=== PATIENT | female | born 1990 | race Hispanic/Latino ===

== ENCOUNTER 2018-09-16 17:43 | Emergency (ER) | payer BC, MEDICAID ==
[~2018-09-16 17:43] MED LIST: ACET1TAB12 PO; DOCU-116 PO; IBUP-2077 PO; PREN1TAB89 PO
[2018-09-16] MEDS ORDERED: LIDOCAINE HCL 2% VISCOUS 15 ML UDCUP ONE (18:09)
== END 2018-09-16 18:28 | disposition home or self-care (01) ==
LOC: EDH 17:43
DX: H66.002 Acute suppurative otitis media without spontaneous rupture of ear drum, left ear (principal)

== ENCOUNTER 2019-06-13 15:53 | Emergency (ER) | payer BC, MEDICAID ==
[2019-06-13 17:24] LABS: APPEARANCE,URINE Clear (CLEAR); BILIRUBIN,URINE Negative (NEGATIVE); COLOR,URINE Yellow (YELLOW); GLUCOSE, URINE (UA) Negative (NEGATIVE); KETONES,URINE Trace mg/dL (NEGATIVE); LEUKOCYTE ESTERASE ,URINE Large (NEGATIVE); NITRATE,URINE Positive (NEGATIVE); OCCULT BLOOD,URINE Negative (NEGATIVE); PH,URINE 6.5 (5.0-8.0); PROTEIN,URINE Negative (NEGATIVE)
[2019-06-13 18:17] LABS: BACTERIA,URINE Few /HPF (None Seen); RBC,URINE None Seen /HPF (0-1)
== END 2019-06-13 17:54 | disposition home or self-care (01) ==
LOC: EDH 15:53
DX: O20.0 Threatened abortion (principal); O23.42 Unspecified infection of urinary tract in pregnancy, second trimester; Z3A.14 14 weeks gestation of pregnancy
CPT/HCPCS: 81001; 87077; 87088; 87186

== ENCOUNTER 2019-11-17 11:04 | Observation (INO) | payer BC, MEDICAID ==
[2019-11-17 11:53] LABS: APPEARANCE,URINE Cloudy (CLEAR); BILIRUBIN,URINE Negative (NEGATIVE); COLOR,URINE Yellow (YELLOW); GLUCOSE, URINE (UA) 250 mg/dL (NEGATIVE); KETONES,URINE Negative (NEGATIVE); LEUKOCYTE ESTERASE ,URINE Small (NEGATIVE); NITRATE,URINE Negative (NEGATIVE); OCCULT BLOOD,URINE Negative (NEGATIVE); PROTEIN,URINE Trace mg/dL (NEGATIVE)
[2019-11-17 11:59] LABS: BACTERIA,URINE Few /HPF (None Seen); RBC,URINE 0-1 /HPF (0-1); SQUAMOUS EPITHELIAL CELL,UR Few /HPF (0-2)
[2019-11-17 12:45] LABS: AMPHET/METH SCREEN,URINE NEGATIVE (NEGATIVE); BARBITURATE SCREEN, URINE NEGATIVE (NEGATIVE); BENZODIAZEPINES SCREEN,URINE NEGATIVE (NEGATIVE); CANNABINOID SCREEN,URINE NEGATIVE (NEGATIVE); COCAINE SCREEN,URINE NEGATIVE (NEGATIVE); OPIATE SCREEN,URINE NEGATIVE (NEGATIVE); PHENCYCLIDINE SCREEN,URINE NEGATIVE (NEGATIVE)
== END 2019-11-17 14:40 | disposition home or self-care (01) ==
LOC: EDH 11:04 → LDH 11:05
PROVIDERS: ADMIT Specialist; ATTEND Specialist
DX: O99.89 Other specified diseases and conditions complicating pregnancy, childbirth and the puerperium (principal); M54.5 Low back pain; O26.893 Other specified pregnancy related conditions, third trimester; R10.13 Epigastric pain; O34.219 Maternal care for unspecified type scar from previous cesarean delivery; Z3A.38 38 weeks gestation of pregnancy
CPT/HCPCS: 80305; 81001; 87804 ×2; 99283; G0378 ×4

== ENCOUNTER 2022-09-27 00:56 | Observation (INO) | payer BC, MEDICAID ==
[~2022-09-27] VITALS: Ht 162.6 cm; Wt 86.6 kg
[~2022-09-27 00:56] MED LIST changes: +PREN-196 PO
[2022-09-27 00:57] VITALS: BP 106/62
[2022-09-27] MEDS ORDERED: LACTATED RINGERS 1000ML IV PRN (01:30)
[2022-09-27 01:32] LABS: APPEARANCE,URINE CLEAR (CLEAR); BILIRUBIN,URINE NEGATIVE (NEGATIVE); COLOR,URINE LIGHT-YELLOW (YELLOW); GLUCOSE, URINE (UA) 50 mg/dL (NEGATIVE); KETONES,URINE NEGATIVE (NEGATIVE); LEUKOCYTE ESTERASE ,URINE 250 Leu/uL (NEGATIVE); NITRATE,URINE 2+ (NEGATIVE); OCCULT BLOOD,URINE NEGATIVE (NEGATIVE); PH,URINE 6.5 (5.0-8.0); PROTEIN,URINE 10 mg/dL (NEGATIVE); UROBILINOGEN,URINE 0.2 mg/dL (0.2-1.0)
[2022-09-27 01:39] LABS: BACTERIA,URINE FEW /HPF (None Seen); MUCUS,URINE RARE LPF (None Seen); SQUAMOUS EPITHELIAL CELL,UR RARE /HPF (0-2)
[2022-09-27] MEDS ORDERED: TERBUTALINE SULFATE VIAL 1MG/ML SQ SCH (02:30)
[2022-09-27] MEDS ORDERED: CEFTRIAXONE 1G VIAL IVP ONE (02:30)
[2022-09-27] MEDS ORDERED: LACTATED RINGERS 1000ML 1,000 ML IV SCH (02:30)
[2022-09-27] MEDS ORDERED: TERBUTALINE SULFATE VIAL 1MG/ML SQ PRN (02:30)
[2022-09-27] MEDS ORDERED: ACETAMINOPHEN 500 MG TABLET PO ONE (03:00)
== END 2022-09-27 04:00 | disposition home or self-care (01) ==
LOC: EDH 00:56 → LDH 00:57
PROVIDERS: ADMIT Obstetrics & Gynecology; ATTEND Obstetrics & Gynecology
DX: O99.891 Other specified diseases and conditions complicating pregnancy (principal); R10.30 Lower abdominal pain, unspecified; M54.50 Low back pain, unspecified; Z3A.31 31 weeks gestation of pregnancy; Z98.891 History of uterine scar from previous surgery
CPT/HCPCS: 96374; 96361; 59025; 96372; 87077; 87088; 87186; 81001; G0378 ×3; G0379; J7120; J3105; J0696; 96360

== ENCOUNTER 2022-10-23 10:12 | Observation (INO) | payer MEDICAID ==
[~2022-10-23] VITALS: Ht 162.6 cm; Wt 88.9 kg
[2022-10-23 10:29] VITALS: BP 117/68
[2022-10-23] MEDS ORDERED: PROMETHAZINE HCL 25 MG/ML 1ML AMPULE IM SCH (11:00)
[2022-10-23 11:05] LABS: APPEARANCE,URINE CLEAR (CLEAR); BILIRUBIN,URINE NEGATIVE (NEGATIVE); COLOR,URINE LIGHT-YELLOW (YELLOW); GLUCOSE, URINE (UA) NEGATIVE (NEGATIVE); KETONES,URINE NEGATIVE (NEGATIVE); LEUKOCYTE ESTERASE ,URINE 500 Leu/uL (NEGATIVE); NITRATE,URINE 1+ (NEGATIVE); OCCULT BLOOD,URINE NEGATIVE (NEGATIVE); PH,URINE 6.5 (5.0-8.0); PROTEIN,URINE NEGATIVE (NEGATIVE); UROBILINOGEN,URINE 0.2 mg/dL (0.2-1.0)
[2022-10-23 11:21] LABS: BACTERIA,URINE MOD /HPF (None Seen); MUCUS,URINE RARE LPF (None Seen); SQUAMOUS EPITHELIAL CELL,UR RARE /HPF (0-2)
[2022-10-23] MEDS ORDERED: CEFTRIAXONE 1G VIAL IM SCH (11:36)
[2022-10-23] MEDS ORDERED: LIDOCAINE HCL MPF 1% 5ML VIAL ONE (12:06)
== END 2022-10-23 12:25 | disposition home or self-care (01) ==
LOC: EDH 10:12 → LDH 10:13
PROVIDERS: ADMIT Obstetrics & Gynecology; ATTEND Obstetrics & Gynecology
DX: O99.891 Other specified diseases and conditions complicating pregnancy (principal); M54.50 Low back pain, unspecified; Z3A.34 34 weeks gestation of pregnancy; Z79.899 Other long term (current) drug therapy
CPT/HCPCS: 59025; 87077; 87088; 87186; 81001; G0378 ×2; G0379; J0696; J3490; J2550

== ENCOUNTER 2022-10-29 13:59 | Observation (INO) | payer MEDICAID ==
[2022-10-29] MEDS ORDERED: LACTATED RINGERS 1000ML IV SCH (14:30)
[2022-10-29] MEDS ORDERED: MEPERIDINE-PF 50 MG/ML SYG IVP PRN (14:30)
[2022-10-29] MEDS ORDERED: PROMETHAZINE HCL 25 MG/ML 1ML AMPULE IM PRN (14:30)
[2022-10-29 14:58] LABS: APPEARANCE,URINE CLEAR (CLEAR); BILIRUBIN,URINE NEGATIVE (NEGATIVE); COLOR,URINE YELLOW (YELLOW); GLUCOSE, URINE (UA) NEGATIVE (NEGATIVE); KETONES,URINE NEGATIVE (NEGATIVE); LEUKOCYTE ESTERASE ,URINE 75 Leu/uL (NEGATIVE); NITRATE,URINE NEGATIVE (NEGATIVE); OCCULT BLOOD,URINE NEGATIVE (NEGATIVE); PH,URINE 6.5 (5.0-8.0); PROTEIN,URINE 30 mg/dL (NEGATIVE); UROBILINOGEN,URINE 0.2 mg/dL (0.2-1.0)
[2022-10-29 15:09] LABS: BACTERIA,URINE FEW /HPF (None Seen); MUCUS,URINE MOD LPF (None Seen); OTHER CASTS, URINE 1 /LPF (None Seen); SQUAMOUS EPITHELIAL CELL,UR FEW /HPF (0-2)
[2022-10-29 15:30] LABS: BASOPHILS % (AUTO) 0.2 % (0.0-5.0); EOSINOPHILS % (AUTO) 0.6 % (0.0-8.0); HEMATOCRIT 30.4 % (36-48); LYMPHOCYTES % (AUTO) 22.3 % (21.0-51.0); MEAN CORPUSCULAR HEMOGLOBIN 22.1 pg (27.0-33.0); MEAN CORPUSCULAR HGB CONC 30.6 g/dL (32.0-36.0); MEAN CORPUSCULAR VOLUME 72.4 fL (79-99); MONOCYTES % (AUTO) 10.6 % (3.0-13.0); NEUTROPHILS % (AUTO) 66.1 % (40.0-77.0); PLATELET COUNT (AUTO) 240 K/uL (130-400); WHITE BLOOD COUNT (AUTO) 5.4 K/uL (4.8-10.8)
[2022-10-29 15:52] LABS: ALBUMIN 2.3 g/dL (3.5-5.0); CREATININE 0.5 mg/dL (0.5-1.5); POTASSIUM 3.8 mmol/L (3.5-5.1); TOTAL PROTEIN, SERUM 6.4 g/dL (6.0-8.3)
[2022-10-29] MEDS ORDERED: TERBUTALINE SULFATE VIAL 1MG/ML SQ ONE (16:22)
[2022-10-29] MEDS ORDERED: LACTATED RINGERS 1000ML 1,000 ML IV SCH (16:30)
[2022-10-29] MEDS ORDERED: TERBUTALINE SULFATE VIAL 1MG/ML SQ PRN (16:30)
[2022-10-29] MEDS ORDERED: AZITHROMYCIN 250 MG TABLET PO SCH (18:12)
== END 2022-10-29 18:45 | disposition home or self-care (01) ==
LOC: LDH 13:59
PROVIDERS: ADMIT Obstetrics & Gynecology; ATTEND Obstetrics & Gynecology
DX: O99.891 Other specified diseases and conditions complicating pregnancy (principal); Z20.822 Contact with and (suspected) exposure to COVID-19; M54.50 Low back pain, unspecified; O23.43 Unspecified infection of urinary tract in pregnancy, third trimester; O26.893 Other specified pregnancy related conditions, third trimester; R50.9 Fever, unspecified; R05.9 Cough, unspecified; Z3A.35 35 weeks gestation of pregnancy
CPT/HCPCS: 96374; 96372; 96361; 80053; 85025; 87088; 87880; 87804 ×2; 81001; 36415; 87635; 71045; G0378 ×4; G0379; J7120 ×2; J3105; J2550; J2175; 96360; 96365

== ENCOUNTER 2023-07-16 04:22 | Emergency (ER) | payer MEDICAID ==
[~2023-07-16] VITALS: Ht 160 cm; Wt 83.9 kg
[~2023-07-16 04:22] MED LIST changes: -ACET1TAB12 PO; -DOCU-116 PO; -IBUP-2077 PO; -PREN1TAB89 PO
[2023-07-16] MEDS ORDERED: ONDANSETRON 4MG INJ ONE (04:35)
[2023-07-16] MEDS ORDERED: 0.9%NACL 1000ML 1,000 ML IV ONE ×2 (04:35→05:00)
[2023-07-16] MEDS ORDERED: HYDROMORPHONE 0.5 MG SYG (0.5MG/0.5ML) ONE (04:58)
[2023-07-16] MEDS ORDERED: ONDANSETRON 4MG INJ IVP ONE (05:00)
[2023-07-16] MEDS ORDERED: HYDROMORPHONE 0.5 MG SYG (0.5MG/0.5ML) IVP ONE (05:00)
[2023-07-16 05:03] LABS: BASOPHILS # (AUTO) 0.03 K/uL (0.00-0.20); BASOPHILS % (AUTO) 0.4 % (0.0-5.0); EOSINOPHILS # (AUTO) 0.04 K/uL (0.00-0.70); EOSINOPHILS % (AUTO) 0.5 % (0.0-8.0); IMMATURE GRANULOCYTE ABSOLUTE 0.03 K/uL (0-1); LYMPHOCYTES # (AUTO) 2.8 K/uL (1.0-4.8); LYMPHOCYTES % (AUTO) 35.8 % (21.0-51.0); MEAN CORPUSCULAR HEMOGLOBIN 25.5 pg (27.0-33.0); MEAN CORPUSCULAR HGB CONC 31.9 g/dL (32.0-36.0); MEAN CORPUSCULAR VOLUME 79.9 fL (79-99); MONOCYTES # (AUTO) 0.5 K/uL (0.1-1.0); MONOCYTES % (AUTO) 6.9 % (3.0-13.0); NEUTROPHILS # (AUTO) 4.4 K/uL (1.8-7.7); PLATELET COUNT (AUTO) 226 K/uL (130-400); RED BLOOD CELL COUNT(AUTO) 4.63 MIL/uL (4.00-5.50); RED CELL DISTRIBUTION WIDTH 15.9 % (11.0-15.5); WHITE BLOOD COUNT (AUTO) 7.9 K/uL (4.8-10.8)
[2023-07-16 05:14] LABS: ADD UA MICROSCOPIC YES; APPEARANCE,URINE TURBID (CLEAR); BILIRUBIN,URINE NEGATIVE (NEGATIVE); COLOR,URINE BROWN (YELLOW); GLUCOSE, URINE (UA) NEGATIVE (NEGATIVE); KETONES,URINE NEGATIVE (NEGATIVE); LEUKOCYTE ESTERASE ,URINE 25 Leu/uL (NEGATIVE); NITRATE,URINE NEGATIVE (NEGATIVE); OCCULT BLOOD,URINE LARGE (NEGATIVE); PH,URINE 5.5 (5.0-8.0); PROTEIN,URINE 20 mg/dL (NEGATIVE); UROBILINOGEN,URINE 0.2 mg/dL (0.2-1.0)
[2023-07-16 05:14] LABS: POTASSIUM 3.6 mmol/L (3.5-5.1)
[2023-07-16 05:15] LABS: RBC,URINE TNTC /HPF (0-1)
[2023-07-16 05:15] LABS: CREATININE 0.7 mg/dL (0.5-1.5)
[2023-07-16 05:42] LABS: ALBUMIN 3.6 g/dL (3.5-5.0); BILIRUBIN,TOTAL 0.2 mg/dL (0.2-1.0); TOTAL PROTEIN, SERUM 7.4 g/dL (6.0-8.3)
[2023-07-16] MEDS ORDERED: HYDROMORPHONE 1 MG INJ ONE (06:15)
[2023-07-16] MEDS ORDERED: HYDROMORPHONE 1 MG INJ IVP ONE (06:30)
[2023-07-16] MEDS ORDERED: IBUP-1493 PO (06:53)
[2023-07-16] MEDS ORDERED: ONDA-104 PO (06:53)
[2023-07-16 07:04] VITALS: BP 138/70; PULSE 82; RESP 20; O2SAT 98
== END 2023-07-16 07:17 | disposition home or self-care (01) ==
LOC: EDH 04:22
DX: K80.20 Calculus of gallbladder without cholecystitis without obstruction (principal)
CPT/HCPCS: 99285; 96374; 76705; 96361; 96375; 80053; 83690; 85025; 81001; 81025; 36415; 96376; J1170 ×2; J7030; J2405

== ENCOUNTER 2024-02-28 15:35 | Emergency (ER) | payer MEDICAID ==
[~2024-02-28] VITALS: Ht 160 cm; Wt 81.6 kg
[~2024-02-28 15:35] MED LIST changes: +IBUP-1493 PO; +ONDA-104 PO
[2024-02-28 16:28] LABS: HEMATOCRIT 40.2 % (36-48); MEAN CORPUSCULAR HGB CONC 31.8 g/dL (32.0-36.0); MEAN CORPUSCULAR VOLUME 78.7 fL (79-99); PLATELET COUNT (AUTO) 271 K/uL (130-400); RED BLOOD CELL COUNT(AUTO) 5.11 MIL/uL (4.00-5.50); RED CELL DISTRIBUTION WIDTH 14.8 % (11.0-15.5); WHITE BLOOD COUNT (AUTO) 5.8 K/uL (4.8-10.8)
[2024-02-28 16:36] LABS: CREATININE 0.7 mg/dL (0.5-1.0); POTASSIUM 3.7 mmol/L (3.5-5.1)
[2024-02-28 16:39] LABS: BILIRUBIN,URINE NEGATIVE (NEGATIVE); COLOR,URINE YELLOW (YELLOW); GLUCOSE, URINE (UA) NEGATIVE (NEGATIVE); KETONES,URINE NEGATIVE (NEGATIVE); LEUKOCYTE ESTERASE ,URINE 75 Leu/uL (NEGATIVE); NITRATE,URINE 1+ (NEGATIVE); OCCULT BLOOD,URINE NEGATIVE (NEGATIVE); PH,URINE 5.5 (5.0-8.0); PROTEIN,URINE 10 mg/dL (NEGATIVE); UROBILINOGEN,URINE 0.2 mg/dL (0.2-1.0)
[2024-02-28 16:40] LABS: APPEARANCE,URINE HAZY (CLEAR)
[2024-02-28 16:41] LABS: ALBUMIN 3.7 g/dL (3.5-5.0); BILIRUBIN,TOTAL 0.4 mg/dL (0.2-1.0); TOTAL PROTEIN, SERUM 7.9 g/dL (6.0-8.3)
[2024-02-28 16:41] LABS: ADD UA MICROSCOPIC YES
[2024-02-28 16:48] LABS: BACTERIA,URINE FEW /HPF (None Seen); MUCUS,URINE MANY LPF (None Seen); SQUAMOUS EPITHELIAL CELL,UR MANY /HPF (0-2)
[2024-02-28 16:53] LABS: AMPHET/METH SCREEN,URINE NEGATIVE (NEGATIVE); BARBITURATE SCREEN, URINE NEGATIVE (NEGATIVE); BENZODIAZEPINES SCREEN,URINE NEGATIVE (NEGATIVE); CANNABINOID SCREEN,URINE NEGATIVE (NEGATIVE); COCAINE SCREEN,URINE NEGATIVE (NEGATIVE); OPIATE SCREEN,URINE NEGATIVE (NEGATIVE); PHENCYCLIDINE SCREEN,URINE NEGATIVE (NEGATIVE)
[2024-02-28] MEDS ORDERED: MECL-160 PO (16:58)
[2024-02-28] MEDS ORDERED: MACR100 PO (16:58)
[2024-02-28 17:16] VITALS: BP 136/75; PULSE 80; RESP 16; O2SAT 100
== END 2024-02-28 17:27 | disposition home or self-care (01) ==
LOC: EDH 15:35
DX: N39.0 Urinary tract infection, site not specified (principal); Z79.899 Other long term (current) drug therapy; Z98.890 Other specified postprocedural states
CPT/HCPCS: 36415; 80053; 80305; 81001; 81025; 85027; 87077; 87088; 87186